=== PATIENT | male | born 1985 | race Caucasian/White ===

== ENCOUNTER → 2017-11-14 | Outpatient (CLI) | payer BC ==
--- NOTE | 2017-11-14 08:35 | CT ---
EXAMINATION TYPE: CT sinus wo con DATE OF EXAM: 11/14/2017 COMPARISON: NONE HISTORY: chronic sinusitis CT DLP: 563 mGycm. Automated Exposure Control for Dose Reduction was Utilized. TECHNIQUE: CT scan of the sinuses is performed without contrast, axial images are obtained, coronal r eformatted images are also reviewed. FINDINGS: There are rounded soft tissue densities within the bilateral maxillary sinuses measuring ap proximately 2.6 cm on the left, 1.3 cm on the right adherent to the medial posterior maxillary sinus mcdonnell. The orbits show symmetric appearance. Ostiomeatal units are patent. Linette bullosa is present on the right. Nasal septum deviated towards the left. No air-fluid levels to suggest acute sinusitis. . Visualized portion of mastoid air cells show no abnormal opacification. The globes are intact bilate rally. IMPRESSION: There may be mucus retention cysts or polyps within the maxillary sinuses. Additional fin dings above.
== END | disposition home or self-care (01) ==
LOC: RADCTMAIN 07:04
PROVIDERS: ATTEND Otolaryngology
DX: J34.2 Deviated nasal septum (principal); R93.8 Abnormal findings on diagnostic imaging of other specified body structures; J32.9 Chronic sinusitis, unspecified
CPT/HCPCS: 70486

== ENCOUNTER → 2019-11-15 | Outpatient (CLI) | payer BC ==
--- NOTE | 2019-11-15 14:09 | CT ---
EXAMINATION TYPE: CT angio chest DATE OF EXAM: 11/15/2019 COMPARISON: NONE HISTORY: SOB x [address] DLP: 514.6 mGycm. Automated Exposure Control for Dose Reduction was Utilized. CONTRAST: CTA scan of the thorax is performed with IV Contrast, patient injected with 100 mL of Isovue 370, pul monary embolism protocol. MIP Images are created on CT scanner and reviewed. FINDINGS: LUNGS: Solitary calcified benign granuloma of the left lower lobe on image 101. The lungs are grossly clear, there is no concerning parenchymal mass or nodule identified. There is no pleural effusion or pneumothorax seen. The tracheobronchial tree is patent. MEDIASTINUM: There is suboptimal admixing of contrast in the central pulmonary artery however there i s satisfactory and symmetric of the right and left main artery and their branches, there is no CT vanessa dence for pulmonary embolism. Suboptimal opacification of the right ventricle and atrium are also se en due to bolus timing and admixing of contrast. There are no greater than 1 cm hilar or mediastinal lymph nodes. No cardiomegaly or pericardial effusion is seen. OTHER: Hepatic steatosis is seen in the limited images of the upper abdomen with probable focal fatty sparing around the gallbladder fossa. Mild multilevel degenerative change of the spine. IMPRESSION: 1. No evidence of pulmonary embolism. There is admixing of contrast in the central main pulmonary art link however right and left main pulmonary artery and their branches remain opacified. Poor admixing o f contrast is also seen in the right heart due to bolus timing. 2. Hepatic steatosis with probable focal fatty sparing around the gallbladder fossa. 3. No focal consolidation, pleural effusion or pneumothorax.
== END | disposition home or self-care (01) ==
LOC: RADCTMAIN 12:29
PROVIDERS: ATTEND Family Medicine
DX: I28.8 Other diseases of pulmonary vessels (principal); R09.02 Hypoxemia
CPT/HCPCS: 71275; Q9967

== ENCOUNTER 2021-01-14 22:38 | Emergency (ER) | payer BC ==
[2021-01-14 22:42] VITALS: RESP 18; TEMP 98.7
[2021-01-14] MEDS ORDERED: ASPIRIN 81 MG PO STA (23:08)
[2021-01-14] MEDS ORDERED: SODIUM CHLORIDE 0.9% 1,000 ML IV STA (23:08)
[2021-01-14 23:29] LABS: Basophils # (A) 0.1 k/uL (0-0.2); Basophils % (A) 1 %; Eosinophils # (A) 0.1 k/uL (0-0.7); Eosinophils % (A) 1 %; HGB 16.1 gm/dL (13.0-17.5); Lymphocytes # (A) 2.6 k/uL (1.0-4.8); Lymphocytes % (A) 30 %; MCH 30.5 pg (25.0-35.0); MCHC 35.7 g/dL (31.0-37.0); MCV 85.4 fL (80.0-100.0); Mean Platelet Volume 6.5; Monocytes # (A) 0.5 k/uL (0-1.0); Monocytes % (A) 5 %; Neutrophils # (A) 5.3 k/uL (1.3-7.7); Neutrophils % (A) 61 %; Platelet Count 317 k/uL (150-450); RBC 5.26 m/uL (4.30-5.90); RDW 12.9 % (11.5-15.5); WBC 8.7 k/uL (3.8-10.6)
--- NOTE | 2021-01-14 23:32 | XR ---
EXAMINATION TYPE: XR chest 2V DATE OF EXAM: 01/14/2021 COMPARISON: NONE HISTORY: Chest pain TECHNIQUE: 2 views FINDINGS: Heart and mediastinum are normal. Lungs are clear. Diaphragm is normal. Bony thorax is inta ct. There are no hilar masses. IMPRESSION: Normal chest.
[2021-01-14 23:38] LABS: ALT 52 U/L (4-49); AST 39 U/L (17-59); African American GFR (CKD) >90 (>60 ml/min/1.73 sqM); Albumin 4.9 g/dL (3.5-5.0); Alkaline Phosphatase 56 U/L (38-126); Anion Gap 12 mmol/L; Blood Urea Nitrogen 12 mg/dL (9-20); Calcium 9.9 mg/dL (8.4-10.2); Carbon Dioxide 25 mmol/L (22-30); Chloride 99 mmol/L (98-107); Glucose 178 mg/dL (74-99); Magnesium 1.8 mg/dL (1.6-2.3); Non-African American GFR(CKD) >90 (>60 ml/min/1.73 sqM); Potassium 3.8 mmol/L (3.5-5.1); Sodium 136 mmol/L (137-145); Total Bilirubin 0.4 mg/dL (0.2-1.3); Total Protein 7.9 g/dL (6.3-8.2)
[2021-01-14 23:49] LABS: INR 0.9 (<1.2); Partial Thromboplastin Time 22.8 sec (22.0-30.0); Prothrombin Time 10.1 sec (9.0-12.0)
--- NOTE | 2021-01-15 01:21 | ED ---
General Adult HPI - General Chief complaint: Chest Pain Stated complaint: Chest Pain Time Seen by Provider: 01/14/21 22:50 Source: patient Mode of arrival: ambulatory Limitations: no limitations - History of Present Illness Initial comments: 35 year-old male patient presents to the emergency department for evaluation of chest tightness and elevated heart rate. Chest tightness has been present all day, states this is not unusual for him. States that he took a shower tonight and afterwards his heart rate went to around 150. States he rested and it drop ped to the 140s then the 120s. States he was having some shortness of breath. Denies any cough. Patient states this is new so he came to get checked out. He denies any dizziness or weakness. Denies headache. Denies any nausea. States he was having some sweating when he did take a hot shower. He did have COVID n July. Patient denies any recent rash, abdominal pain, diarrhea, constipation, back pain, numbness, tingling, hematuria, dysuria, urinary urgency, urinary frequency, headache, visual changes, or any other complaints. - Related Data Home Medications Medication Instructions Recorded Confirmed Citalopram Hydrobromide [CeleXA] 40 mg PO DAILY 04/08/14 04/08/14 Lansoprazole [Prevacid] 30 mg PO DAILY 04/08/14 04/08/14 Lisinopril-Hctz 20-12.5 mg 1 each PO DAILY 04/08/14 04/08/14 [Zestoretic 20-12.5] Previous Rx's Medication Instructions Recorded Amoxicillin 500 mg PO Q8H #40 capsule 04/08/14 Allergies Allergy/AdvReac Type Severity Reaction Status Date / Time No Known Allergies Allergy Verified 04/08/14 08:16 Review of Systems ROS Statement: Those systems with pertinent positive or pertinent negative responses have been documented in the HPI. ROS Other: All systems not noted in ROS Statement are negative. Past Medical History Past Medical History: GERD/Reflux, Hypertension History of Any Multi-Drug Resistant Organisms: None Reported Past Surgical History: Tonsillectomy Past Psychological History: Depression Smoking Status: Never smoker Past Alcohol Use History: Occasional Past Drug Use History: None Reported General Exam Limitations: no limitations General appearance: alert, in no apparent distress, other (This is a well-de veloped, well-nourished adult male patient in no acute distress. Vital signs upon presentation are temperature 98.7F, pulse 120, respirations 18, blood pressure 145/92, pulse ox 100% on room air.) Eye exam: Present: normal appearance, PERRL, EOMI. Absent: scleral icterus, conjunctival injection, periorbital swelling ENT exam: Present: normal exam, normal oropharynx, mucous membranes moist Respiratory exam: Present: normal lung sounds bilaterally. Absent: respiratory distress, wheezes, rales, rhonchi, stridor Cardiovascular Exam: Present: normal rhythm, tachycardia, normal heart sounds. Absent: systolic murmur, diastolic murmur, rubs, gallop, clicks GI/Abdominal exam: Present: soft, normal bowel sounds. Absent: distended, tenderness, guarding, rebound, rigid Neurological exam: Present: alert, oriented X3, CN II-XII intact Psychiatric exam: Present: normal affect, normal mood Skin exam: Present: warm, dry, intact, normal color. 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 No evidence of ST elevation or depression. Medical Decision Making - Medical Decision Making 35-year-old male patient presents to the emergency department today for evaluation of tachycardia and chest tightness. Physical examination was unremarkable. Did have mildly elevated heart rate upon my exam at around 106. Lungs are clear to auscultation with good air movement. EKG was obtained and showed sinus tachycardia with no ST elevation or depression. Labs are unremarkable. Troponin negative. TSH negative. Blood sugar was elevated at 178 did add a hemoglobin A1c. He is instructed to follow-up with his primary care physician for recheck in 1-2 days. He is instructed to discuss possible heart monitoring her follow up with cardiology. Return parameters were discussed in detail. He verbalizes understanding and agrees with this plan. Case discussed with my attending Dr. Mart. - Lab Data Result diagrams: 01/14/21 23:11 01/14/21 23:11 Lab Results 01/14/21 01/14/21 01/14/21 Range/Units 23:11 23:11 23:11 WBC 8.7 (3.8-10.6) k/uL RBC 5.26 (4.30-5.90) m/uL Hgb 16.1 (13.0-17.5) gm/dL Hct 45.0 (39.0-53.0) % MCV 85.4 (80.0-100.0) fL MCH 30.5 (25.0-35.0) pg MCHC 35.7 (31.0-37.0) g/dL RDW 12.9 (11.5-15.5) % Plt Count 317 (150-450) k/uL MPV 6.5 Neutrophils % 61 % Lymphocytes % 30 % Monocytes % 5 % Eosinophils % 1 % Basophils % 1 % Neutrophils # 5.3 (1.3-7.7) k/uL Lymphocytes # 2.6 (1.0-4.8) k/uL Monocytes # 0.5 (0-1.0) k/uL Eosinophils # 0.1 (0-0.7) k/uL Basophils # 0.1 (0-0.2) k/uL PT 10.1 (9.0-12.0) sec INR 0.9 (<1.2) APTT 22.8 (22.0-30.0) sec D-Dimer 0.20 (<0.60) mg/L FEU Sodium 136 L (137-145) mmol/L Potassium 3.8 (3.5-5.1) mmol/L Chloride 99 (98-107) mmol/L Carbon Dioxide 25 (22-30) mmol/L Anion Gap 12 mmol/L BUN 12 (9-20) mg/dL Creatinine 0.70 (0.66-1.25) mg/dL Est GFR (CKD-EPI)AfAm >90 (>60 ml/min/1.73 sqM) Est GFR (CKD-EPI)NonAf >90 (>60 ml/min/1.73 sqM) Glucose 178 H (74-99) mg/dL Calcium 9.9 (8.4-10.2) mg/dL Magnesium 1.8 (1.6-2.3) mg/dL Total Bilirubin 0.4 (0.2-1.3) mg/dL AST 39 (17-59) U/L ALT 52 H (4-49) U/L Alkaline Phosphatase 56 (38-126) U/L Troponin I (0.000-0.034) ng/mL Total Protein 7.9 (6.3-8.2) g/dL Albumin 4.9 (3.5-5.0) g/dL TSH (0.465-4.680) mIU/L 01/14/21 01/14/21 Range/Units 23:11 23:11 WBC (3.8-10.6) k/uL RBC (4.30-5.90) m/uL Hgb (13.0-17.5) gm/dL Hct (39.0-53.0) % MCV (80.0-100.0) fL MCH (25.0-35.0) pg MCHC (31.0-37.0) g/dL RDW (11.5-15.5) % Plt Count (150-450) k/uL MPV Neutrophils % % Lymphocytes % % Monocytes % % Eosinophils % % Basophils % % Neutrophils # (1.3-7.7) k/uL Lymphocytes # (1.0-4.8) k/uL Monocytes # (0-1.0) k/uL Eosinophils # (0-0.7) k/uL Basophils # (0-0.2) k/uL PT (9.0-12.0) sec INR (<1.2) APTT (22.0-30.0) sec D-Dimer (<0.60) mg/L FEU Sodium (137-145) mmol/L Potassium (3.5-5.1) mmol/L Chloride (98-107) mmol/L Carbon Dioxide (22-30) mmol/L Anion Gap mmol/L BUN (9-20) mg/dL Creatinine (0.66-1.25) mg/dL Est GFR (CKD-EPI)AfAm (>60 ml/min/1.73 sqM) Est GFR (CKD-EPI)NonAf (>60 ml/min/1.73 sqM) Glucose (74-99) mg/dL Calcium (8.4-10.2) mg/dL Magnesium (1.6-2.3) mg/dL Total Bilirubin (0.2-1.3) mg/dL AST (17-59) U/L ALT (4-49) U/L Alkaline Phosphatase (38-126) U/L Troponin I <0.012 (0.000-0.034) ng/mL Total Protein (6.3-8.2) g/dL Albumin (3.5-5.0) g/dL TSH 1.650 (0.465-4.680) mIU/L - Radiology Data Radiology results: report reviewed, image reviewed Two-view x-ray of the chest was obtained. Report was reviewed in its entirety. Impression by Dr. Armando shows normal chest. Disposition Clinical Impression: Chest pain, Tachycardia Disposition: HOME SELF-CARE Condition: Good Instructions (If sedation given, give patient instructions): Chest Pain (ED), Tachycardia (ED) Additional Instructions: Increase fluids. Rest. Follow-up through primary care physician for recheck tomorrow. Return to the emergency department for any new, worsening, or concerning symptoms. Is patient prescribed a controlled substance at d/c from ED?: No Referrals: Ava Beth III, MD [Primary Care Provider] - 1-2 days Time of Disposition: 01:27
[2021-01-15 01:46] VITALS: BP 139/90; PULSE 105
== END 2021-01-15 01:57 | disposition home or self-care (01) ==
LOC: EC 22:38
DX: R07.89 Other chest pain (principal); R00.0 Tachycardia, unspecified; K21.9 Gastro-esophageal reflux disease without esophagitis; I10 Essential (primary) hypertension
CPT/HCPCS: 36415; 71046; 80053; 83036; 83735; 84443; 84484; 85025; 85379; 85610; 85730; 93005; 96360; 96361; 99285

== ENCOUNTER → 2022-03-22 | Outpatient (CLI) | payer BC ==
--- NOTE | 2022-03-22 16:14 | MR ---
EXAMINATION TYPE: MR lumbar spine wo con DATE OF EXAM: 03/22/2022 COMPARISON: None HISTORY: Lower back pain, left sciatica. TECHNIQUE: Multiplanar, multisequence images of the lumbar spine were acquired without IV contrast. L1-L2: Normal disc appearance without desiccation. No herniation, protrusion or disc bulging. No ca nal stenosis is present. Foramina are patent bilaterally. L2-L3: Normal disc appearance without desiccation. No herniation, protrusion or disc bulging. No ca nal stenosis is present. Foramina are patent bilaterally. L3-L4: Normal disc appearance without desiccation. No herniation, protrusion or disc bulging. No ca nal stenosis is present. Foramina are patent bilaterally. L4-L5: Posterior central disc herniation causes anterior mass effect on the thecal sac and is eccentr ic towards the left likely with mass effect on the left L5 nerve root. Anterolateral mass effect on t he thecal sac. Circumferential extension of endplate disc complex encroaches on the inferior aspect o f the foramina. Discogenic material extends posterior to the L5 vertebral body to the left of midline L5-S1: Normal disc appearance without desiccation. No herniation, protrusion or disc bulging. No ca nal stenosis is present. Foramina are patent bilaterally. Lumbar segments are intact. No paraspinal masses are identified. Conus medullaris has a normal appe arance. Lumbar vertebral bodies show preserved height and alignment. Suspect L5 is a transitional ebenezer tebral body. There is multilevel spondylosis, endplate discogenic marrow signal changes are present, there is loss of disc height and signal at L4-5 consistent with disc desiccation and degenerative dis c disease. No significant spinal stenosis. IMPRESSION: Correlate with plain film prior to any intervention. Correlate for left L5 radiculopathy. Disc hernia tion suspected L4-5.
== END | disposition home or self-care (01) ==
LOC: RADMRIMAIN 15:02
PROVIDERS: ATTEND Family Medicine
DX: M54.42 Lumbago with sciatica, left side (principal); M54.17 Radiculopathy, lumbosacral region
CPT/HCPCS: 72148

== ENCOUNTER → 2022-09-29 | Outpatient (CLI) | payer BC ==
[2022-09-29 23:30] LABS: ALT 26 U/L (10-49); AST 19 U/L (14-35); African American GFR (CKD) 134.4 (60.0-200.0); Albumin 4.7 g/dL (3.8-4.9); Albumin/Globulin Ratio 1.85 (1.60-3.17); Alkaline Phosphatase 46 U/L (41-126); BUN/Creat Ratio 15.59 Ratio (12.00-20.00); Blood Urea Nitrogen 11.6 mg/dL (9.0-27.0); Calcium 9.8 mg/dL (8.7-10.3); Carbon Dioxide 28.6 mmol/L (20.0-27.5); Chloride 97 mmol/L (96-109); Chol/HDL Ratio 5.09 Ratio; Globulin 2.5 g/dL (1.6-3.3); Glucose 107 mg/dL (70-110); Non-African American GFR(CKD) 115.9 (60.0-200.0); Potassium 4.1 mmol/L (3.5-5.5); Sodium 139 mmol/L (135-145); Total Protein 7.2 g/dL (6.2-8.2)
[2022-09-29 23:32] LABS: Basophils # (A) 0.03 X 10*3/uL (0.00-0.10); Basophils % (A) 0.6 %; Eosinophils % (A) 1.9 %; HCT 45.1 % (39.6-50.0); HGB 15.4 g/dL (13.0-17.0); Immature Grans, Automated 0.6 %; Lymphocytes # (A) 2.53 X 10*3/uL (0.90-5.00); Lymphocytes % (A) 47.6 %; MCH 29.8 pg (27.0-32.0); MCHC 34.1 g/dL (32.0-37.0); MCV 87.4 fL (80.0-97.0); Mean Platelet Volume 9.3 fL (9.5-12.2); Monocytes # (A) 0.34 X 10*3/uL (0.20-1.00); Monocytes % (A) 6.4 %; NRBC Per 100 WBC 0 /100 WBCS (0.0-0.0); Neutrophils # (A) 2.29 X 10*3/uL (1.80-7.70); Neutrophils % (A) 42.9 %; Platelet Count 253 X 10*3/uL (140-440); RBC 5.16 X 10*6/uL (4.40-5.60); RDW 12.3 % (11.5-14.5); WBC 5.32 X 10*3/uL (4.50-10.00)
== END | disposition home or self-care (01) ==
LOC: LABWHC1 15:15
PROVIDERS: ATTEND Family Medicine
DX: E78.5 Hyperlipidemia, unspecified (principal); K21.9 Gastro-esophageal reflux disease without esophagitis; F90.0 Attention-deficit hyperactivity disorder, predominantly inattentive type; F33.0 Major depressive disorder, recurrent, mild; F41.1 Generalized anxiety disorder; E55.9 Vitamin D deficiency, unspecified; M51.26 Other intervertebral disc displacement, lumbar region; R94.6 Abnormal results of thyroid function studies
CPT/HCPCS: 36415; 80053; 80061; 82306; 84439; 84443; 85025